=== PATIENT | female | born 1980 | race Two or more races ===

== ENCOUNTER 2024-10-29 21:56 | Emergency (ER) | payer BC, MEDICAID, SELFPAY ==
[2024-10-29 21:57] VITALS: BMI 37.0
[2024-10-29 23:04] VITALS: BP 149/89; PULSE 66; RESP 20; TEMP 36.7; O2SAT 99
--- NOTE | 2024-10-29 23:15 | XR_ITS ---
Examination: CT abdomen with intravenous contrast CT pelvis with intravenous contrast 2-D coronal reconstructions 2-D sagittal reconstructions Date and time of exam:October 30, 2024 0012 hrs. Indications: Onset severe left-sided flank pain left lower abdominal pain beginning 1500 hrs. Yesterday. CTDI: vol (mGy) 13.9 DLP: (mGycm) 813 Technique: Multiple axial sections of the abdomen and pelvis have been obtained. 64 slice high-resolution scanner used. 3 mm axial sections have been obtained, post intravenous injection 60 cc [id number] 2-D sagittal, coronal reconstructions obtained. Low dose protocols were performed. One or more of the following dose reduction techniques were used; automated exposure control, adjustment of the mA and/or KV according to patient size, use of iterative reconstruction technique. Findings: No focal liver or splenic lesions Contracted gallbladder No pancreatic or adrenal mass Mild renal parenchymal scar formation No renal or ureteral calculi, no hydronephrosis Aorta normal size Normal appendix No bowel obstruction No diverticulitis Solid pelvic mass consistent with enlarged left ovary irregular contour 5.0 cm Absent uterus Air distended rectum Contracted urinary bladder Transpedicular lumbar fusion L4-L5 Impression: Abnormally enlarged left ovary, recommend transvaginal transabdominal pelvic sonography follow-up
--- NOTE | 2024-10-29 23:17 | PD.EDRME ---
Rapid Medical Screening Exam E Arrival date/time: 10/29/24 21:56 44F with history of hysterectomy, diverticulitis and kidney stones presents to ED with LLQ/flank pain and N/V. Patient denies dysuria. Chief Complaint: Abdominal Pain Vital signs: Vital Signs Temperature 98.1 F 10/29/24 23:04 Pulse Rate 66 10/29/24 23:04 Respiratory Rate 20 10/29/24 23:04 Blood Pressure 149/89 H 10/29/24 23:04 Pulse Oximetry (%) 99 10/29/24 23:04 Oxygen Delivery Method Room Air 10/29/24 23:04
[2024-10-29] MEDS: ONDANSETRON INJ 2 MG/ML INJ 2 ML 4 MG IV (23:26)
[2024-10-29 23:36] LABS: Basophils # (Auto) 0.1 Thou/mm3 (0.0-0.2); Basophils % (Auto) 1 % (0-2.5); Eosinophils # (Auto) 0.2 Thou/mm3 (0.0-0.5); Eosinophils % (Auto) 2 % (0-10); Hematocrit 41.4 % (36.0-46.0); Hemoglobin 14.2 g/dL (12.0-16.0); Immature Granulocytes % (Auto) 0 % (0-0); Immature Granulocytes Auto 0.01 Thou/mm3 (0.00-0.00); Lymphocytes # (Auto) 2.7 Thou/mm3 (1.0-4.8); Lymphocytes % (Auto) 30 % (10-50); Mean Corpuscular HGB Conc 34.3 g/dl (31.0-37.0); Mean Corpuscular Hemoglobin 30.4 pg (25.0-35.0); Mean Corpuscular Volume 89 fL (80-100); Monocytes # (Auto) 0.7 Thou/mm3 (0.0-0.8); Monocytes % (Auto) 8 % (0-12); Neutrophils # (Auto) 5.2 Thou/mm3 (1.8-7.7); Neutrophils % (Auto) 60 % (37-80); Nucleated Red Blood Cell % 0 /100 WBC (0); Platelet Count 311 Thou/mm3 (140-440); RDW Standard Deviation 40.4 fL (36.4-46.3); Red Blood Count 4.67 Miln/mm3 (4.00-5.20); White Blood Count 8.8 Thou/mm3 (3.6-11.0)
[2024-10-29 23:51] LABS: Anion Gap 9 (7-16); BUN/Creatinine Ratio 16 Ratio (12-20); Blood Urea Nitrogen 16 mg/dL (9-23); Carbon Dioxide 26.2 mMol/L (20.0-31.0); Chloride 107 mMol/L (98-107); Estimated Creatinine Clearance 80.8 mL/min (>60); Glucose 98 mg/dL (74-106); Potassium 3.9 mMol/L (3.4-5.1); Sodium 142 mMol/L (136-145); eGFR > 60 See Note
[2024-10-29 23:52] LABS: Alanine Aminotransferase 24 U/L (10-49); Albumin, Serum 4.7 gm/dL (3.5-5.0); Albumin/Globulin Ratio 1.6 (1.2-2.2); Alkaline Phosphatase 85 U/L (46-116); Aspartate Amino Transferase 22 U/L (0-34); Bilirubin,Total 0.4 mg/dL (0.3-1.2); Calcium 10.1 mg/dL (8.3-10.6); Calcium (Corrected) 10.1 mg/dL (8.5-10.1); Globulin 2.9 gm/dL (2.3-3.5); Lipase 41 U/L (12-53); Osmolality,Calculated 284 (275-295); Total Protein 7.6 gm/dL (5.7-8.2)
[2024-10-29 23:59] LABS: Collection Type, Urine Clean Catch
[2024-10-30 00:09] LABS: Bilirubin,Urine Negative (Negative); Blood,Urine Negative (Negative); Clarity,Urine Clear (Clear/Hazy); Color,Urine Lt-Yellow (Lt Yel-Yel); Culture Indicated,Urine Not Indicated; Glucose, Urine Negative (Negative); Ketones,Urine Negative (Negative); Leukocyte Esterase,Urine Negative (Negative); Nitrite,Urine Negative (Negative); Protein,Urine Negative (Neg - Trace); RBC,Urine 2 /hpf (0-3); Squamous Epithelial Cell,Urine 2 /hpf (0-5); Urobilinogen,Urine Negative mg/dL (0.0-1.0); WBC,Urine 1 /hpf (0-5)
[2024-10-30] MEDS: KETOROLAC INJ 30 MG/ML VIAL IVP (00:23)
[2024-10-30 01:31] VITALS: BP 132/77; PULSE 65; RESP 18; TEMP 36.6; O2SAT 98
--- NOTE | 2024-10-30 01:41 | PC.NURSE ---
To ct scan via [facility].
--- NOTE | 2024-10-30 01:45 | PD.EDABDPN ---
ED Abdominal Pain RME/HPI General Chief Complaint: Abdominal Pain Stated complaint: LLQ/ LT FLANK PAIN Arrival date/time: 10/29/24 21:56 RME / HPI RME / HPI narrative: 10/29/24 21:56 44F with history of hysterectomy, diverticulitis and kidney stones presents to ED with LLQ/flank pain and N/V. Patient denies dysuria. -------- Dr. Alejandro?s Main ED Evaluation: 44yo female presents to the ED for a chief complaint of LLQ pain x 1999. Patient states she started having severe LLQ pain tonight, reporting it radiates to her back and left thigh. Patient reports associated chills. She denies any fever, N/V, diarrhea, constipation or any other associated symptoms. She endorses having a history of kidney stones and diverticulitis. Related Data Home Medications ?Medication ?Instructions ?Recorded ?Confirmed ergocalciferol (vitamin D2) 1,250 mcg PO QWEEK 02/06/24 mcg (50,000 unit) capsule eszopiclone 3 mg tablet (Lunesta) 3 mg PO HS 02/06/24 02/06/24 pramipexole 0.125 mg tablet 0.125 mg PO HS 02/06/24 02/06/24 semaglutide (weight loss) 2.4 2.4 mg subcut QWEEK 02/06/24 02/06/24 mg/0.75 mL subcutaneous pen injector (Wegovy) Allergies Allergy/AdvReac Type Severity Reaction Status Date / Time tramadol AdvReac Mild GI UPSET, Verified 02/08/24 07:54 cloudy thoughts,couldnt think straight PAPER TAPE AdvReac Unknown Uncoded 02/08/24 07:54 Review of Systems Review of Systems Systems Reviewed: All systems reviewed, normal except as documented Past Medical History Past Medical History NEUROLOGIC: Positive Neurological Disorders and Migraine; Negative Seizures CARDIAC: Negative Cardiac Disorders, Congestive Heart Failure, Edema, Cellulitis or Varicose Veins RESPIRATORY: Positive Asthma; Negative Chronic Obstructive Pulmonary Disease (COPD), Tuberculosis, Pulmonary Embolism or Sleep Apnea GASTROINTESTINAL: Positive Gastrointestinal Disorders, Diverticulitis, Gastroesophageal Reflux Disease and Obesity; Negative Hepatitis GENITOURINARY: Positive Genitourinary Disorders and Kidney Stones; Negative Renal Disease REPRODUCTIVE: Positive Previous Pregnancies (x4) MUSCULOSKELETAL: Positive Musculoskeletal Disorders and Degenerative Disk Disease ENDOCRINE: Positive Diabetes Mellitus Type 2; Negative Endocrine Disorders or Diabetes Mellitus Type 1 HEMATOLOGIC: Negative Blood Disorders or Sickle Cell Disease OTHER HISTORY: Positive Chicken Pox; Negative Hospitalization, Autoimmune Disease, Shingles, Falls, Blood Transfusions, Blood Transfusion Reaction, Anesthesia Reactions, Chemotherapy, Radiation Therapy, MRSA, Measles, Mumps or Cancer Family History FAMILY HISTORY: Positive Family Cardiac Disorders, Family Cancer and Family Surgery; Negative Family Psychiatric Problems, Family Respiratory Disorders, Family Gastrointestinal Problems or Family Anesthesia Reaction Surgical History SURGICAL: Positive Tonsillectomy, Abdominal Surgery and Tubal Ligation; Negative Cardiac Surgery or Pacemaker Social History SMOKING STATUS: Never smoker ED Exam Narrative Physical exam: GENERAL APPEARANCE: alert and oriented x 4, well-developed, well-nourished, no acute distress VITALS: All vitals were reviewed and the pulse ox is 98% on room air, which is normal according to my interpretation. HEENT: Normocephalic, atraumatic; pupils equal, round, reactive to light; EOMI; mucous membranes pink, moist; oropharynx clear NECK: Supple LUNGS: CTABL; no wheezes, no rales, no rhonchi HEART: Regular rate, regular rhythm; normal S1, S2; no murmurs ABDOMEN: non distended; normal BS; soft, moderate LLQ tenderness, voluntary guarding, no rebound; no masses, no organomegaly, no hernia BACK: no CVA tenderness EXTREMITIES: atraumatic; no edema NEUROLOGIC: awake; alert and oriented x4; cranial nerves II-XII grossly intact; no focal sensory or motor deficits PSYCHIATRIC: appropriate mood and affect SKIN: warm, dry, normal color; no rashes Course Quality Measures none Orders Category Date Time Status CT Screening NOW Care 10/29/24 23:16 Active Investor Relations Coordinator Q4H START 00 Care 10/30/24 01:56 Active Continuous Pulse Oximetry NOW Care 10/30/24 01:56 Completed IV [Insert IV] NOW Care 10/30/24 01:56 Active Insert IV NOW Care 10/29/24 23:[address] abdomen pelvis w con Stat Exams 10/29/24 23:15 Taken US pelvic complete Stat Exams 10/30/24 03:12 Taken CBC Stat Lab 10/29/24 23:25 Completed CMP [Comprehensive Metabolic Panel] Stat Lab 10/29/24 23:25 Completed Lipase Stat Lab 10/29/24 23:25 Completed Urinalysis, C/S if Indicated Stat Lab 10/29/24 23:55 Completed HYDROmorphone INJ [Dilaudid Inj] Med 10/30/24 01:57 Discontinued 1 mg IVP X1 ONE Ketorolac Inj [Toradol Inj] Med 10/30/24 00:02 Discontinued 30 mg IVP X1 ONE Ondansetron Inj [Zofran Inj] Med 10/29/24 23:16 Discontinued 4 mg IV X1 ONE Sodium Chloride 0.9% 1000 ml [Ns] 1,000 ml Med 10/30/24 01:57 Discontinued IV 999 mls/hr Vital Signs Vital signs: Vital Signs Temperature 98.1 F 10/29/24 23:04 Pulse Rate 66 10/29/24 23:04 Respiratory Rate 20 10/29/24 23:04 Blood Pressure 149/89 H 10/29/24 23:04 Pulse Oximetry (%) 99 10/29/24 23:04 Oxygen Delivery Method Room Air 10/29/24 23:04 Abdominal Pain MDM MDM Narrative MDM Narrative:: Scribe Attestation: 10/30/24 Bianca Kirkland am scribing for and in the presence of Dr. Alejandro. 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 ------ [facility] Preliminary Report Draft Patient: YOHANA VARGAS [facility]. Record#: [id number] Birthdate: 1980 Age/Sex: 44 / F Location: [facility] Attending Dr: Ordering Physician: Date of Service: Procedure(s): Accession Number(s): cc: ~ CT scan of the abdomen and pelvis with intravenous contrast (axial sections with sagittal and coronal reformats) October 30, 2024 at 0140 hours Clinical History: LLQ/flank pain. Comparison: None. Findings: The lung bases are clear. The liver, gallbladder, pancreas, spleen, kidneys and adrenals are unremarkable. No evidence of bowel obstruction. The appendix is within normal limits. There is no mesenteric or retroperitoneal adenopathy. The urinary bladder is nondistended, limited evaluation. There is no free fluid or free air. No acute fractures. S/p posterior laminectomy of L4 and L5. Chronic disc disease at L4-L5. Posterior fusion hardware between L4, L5, and S1. S/p hysterectomy. Enlarged heterogenous left ovary measuring 5.0 x 4.2 cm. Impression: Enlarged heterogenous left ovary. Correlation with pelvic ultrasound is recommended. No evidence of kidney or ureteral stones. Report Electronically Signed By: Warren Bernard 10/30/2024 2:30:36 AM [EST] [facility] Preliminary Report Draft Patient: YOHANA VARGAS Record#: [id number] Birthdate: 1980 Age/Sex: 44 / F Location: [facility] Attending Dr: Ordering Physician: Date of Service: Procedure(s): Accession Number(s): cc: ~ Pelvic ultrasound (transabdominal ) with doppler and wave doppler spectral analysis. October 30, 2024 at 0419 hours Clinical history: Left lower quadrant/left pelvic pain. Technique: Real-time, grayscale, transabdominal and transvaginal pelvic ultrasound was performed using Duplex scanning including arterial inflow, venous outflow, color and spectral Doppler. Comparison: Compared with the prior study dated October 30, 2024. Findings: Status post hysterectomy. The right ovary measures 1.8 x 2.2 x 1.8 cm and is unremarkable. The left ovary measures 3.7 x 3.8 x 2.8 cm mildly complex cystic lesion in the left ovary measures 1.7 x 0.8 x 1.5 cm. Both ovaries demonstrate color flow and spectral waveforms on Doppler evaluation. There is no adnexal mass. There is no free fluid on the submitted images. Impression: No evidence of ovarian torsion. Left ovarian mildly complex cystic lesion, possibly ruptured cyst. Consider correlation with MRI for further evaluation. Report Electronically Signed By: Warren Bernard 10/30/2024 5:45:55 AM [EST] Medications / Prescriptions Medications or Prescriptions considered but not ordered:: none Medication administrations:: Medication Administration History Discontinued Medications Hydromorphone HCl (Hydromorphone Inj 2 Mg/Ml Vial) 1 mg IVP X1 ONE Stop: 10/30/24 01:58 Last Admin: 10/30/24 02:00 Dose: 1 mg Documented By: LISANDRO Sodium Chloride (Ns) 1,000 mls @ 999 mls/hr IV .Q1H1M ONE Stop: 10/30/24 02:57 Last Infusion: 10/30/24 03:28 Dose: Infused Documented By: Admin: 10/30/24 02:00 Dose: 999 mls/hr Documented By: LISANDRO Ketorolac Tromethamine (Ketorolac Inj 30 Mg/Ml Vial) 30 mg IVP X1 ONE Stop: 10/30/24 00:03 Last Admin: 10/30/24 00:23 Dose: 30 mg Documented By: ADAM Ondansetron HCl (Ondansetron Inj 2 Mg/Ml Inj 2 Ml) 4 mg IV X1 ONE; Protocol Stop: 10/29/24 23:17 Last Admin: 10/29/24 23:26 Dose: 4 mg Documented By: ADAM see above Consultations Consultation(s) initiated? (list below): No Diagnosis Differential diagnosis abdominal pain: diverticulitis and other (renal colic, ovarian cyst, tubo ovarian abscess) Most likely diagnosis given after review of the tests above:: see below Admission Indicated Admission indicated?: not indicated Admission Request Was there a request for admission?: No Disposition Plan Disposition Plan: Discharge Discharge Attestation Discharge Attestation: The patient and all family members were given an opportunity to ask questions and understood the discharge instructions. Discharge instructions specifically effects, indications for sooner follow up or return to the emergency department, and the expected course of current diagnosis. Patient condition: Stable Discharge Plan Prescriptions/Referrals Prescriptions/Med Rec: No Action pramipexole 0.125 mg tablet 0.125 mg PO HS Patient Comments: TAKE 1 TABLET BY MOUTH 2-3 HOURS BEFORE BEDTIME 90 ergocalciferol (vitamin D2) 1,250 mcg (50,000 unit) capsule PO QWEEK Patient Comments: TAKE 1 CAPSULE BY MOUTH ONE TIME A WEEK eszopiclone [Lunesta] 3 mg Tablet 3 mg PO HS Wegovy 2.4 mg/0.75 mL pen injector 2.4 mg SUBCUT QWEEK Patient Comments: INJECT 2.4MG SUBCUTANEOUSLY WEEKLY 28 Referrals: No Primary/Family,Physician [Primary Care Provider] - In 1 week Problem List Clinical Impression: Left lower quadrant abdominal pain Patient/Caregiver Discharge Instructions Print Language: Guamanian
[2024-10-30] MEDS: HYDROmorphone INJ 2 MG/ML VIAL 1 MG IVP (02:00)
[2024-10-30] MEDS: SODIUM CHLORIDE 0.9% 1000 ML 1,000 ML 999 ML IV (02:00)
--- NOTE | 2024-10-30 02:56 | PRELIM_ITS ---
CT scan of the abdomen and pelvis with intravenous contrast (axial sections with sagittal and coronal reformats) October 30, 2024 at 0140 hours Clinical History: LLQ/flank pain. Comparison: None. Findings: The lung bases are clear. The liver, gallbladder, pancreas, spleen, kidneys and adrenals are unremarkable. No evidence of bowel obstruction. The appendix is within normal limits. There is no mesenteric or retroperitoneal adenopathy. The urinary bladder is nondistended, limited evaluation. There is no free fluid or free air. No acute fractures. S/p posterior laminectomy of L4 and L5. Chronic disc disease at L4-L5. Posterior fusion hardware between L4, L5, and S1. S/p hysterectomy. Enlarged heterogenous left ovary measuring 5.0 x 4.2 cm. Impression: Enlarged heterogenous left ovary. Correlation with pelvic ultrasound is recommended. No evidence of kidney or ureteral stones. Report Electronically Signed By: Warren Bernard 10/30/2024 2:30:36 AM [EST]
--- NOTE | 2024-10-30 03:12 | XR_ITS ---
Examination: Pelvic ultrasound, transabdominal, complete Technique: Transabdominal ultrasound of the pelvis performed using grayscale imaging Date and time of exam: October 30, 2024 0419 hrs. Indications: Left-sided pelvic pain beginning today, hysterectomy February 02, 2024 Findings: Absent uterus Right ovary 2.2 cm arterial flow Left ovary 3.8 cm arterial flow, mild fluid adjacent to the left ovary (17 x 8 x 15 mm Impression: Mild fluid adjacent to the left ovary which may be secondary to ruptured cyst Left ovarian cyst 17 x 8 x 15 mm
[2024-10-30 04:18] VITALS: BP 120/77; PULSE 62; RESP 18; TEMP 36.6; O2SAT 99
--- NOTE | 2024-10-30 04:19 | PC.NURSE ---
US at bedside.
[2024-10-30 05:23] VITALS: BP 115/71; PULSE 62; RESP 18; TEMP 36.6; O2SAT 95
--- NOTE | 2024-10-30 05:46 | PRELIM_ITS ---
Pelvic ultrasound (transabdominal ) with doppler and wave doppler spectral analysis. October 30, 2024 at 0419 hours Clinical history: Left lower quadrant/left pelvic pain. Technique: Real-time, grayscale, transabdominal and transvaginal pelvic ultrasound was performed using Duplex scanning including arterial inflow, venous outflow, color and spectral Doppler. Comparison: Compared with the prior study dated October 30, 2024. Findings: Status post hysterectomy. The right ovary measures 1.8 x 2.2 x 1.8 cm and is unremarkable. The left ovary measures 3.7 x 3.8 x 2.8 cm mildly complex cystic lesion in the left ovary measures 1.7 x 0.8 x 1.5 cm. Both ovaries demonstrate color flow and spectral waveforms on Doppler evaluation. There is no adnexal mass. There is no free fluid on the submitted images. Impression: No evidence of ovarian torsion. Left ovarian mildly complex cystic lesion, possibly ruptured cyst. Consider correlation with MRI for further evaluation. Report Electronically Signed By: Warren Bernard 10/30/2024 5:45:55 AM [EST]
--- NOTE | 2024-10-30 06:02 | PC.NURSE ---
Dr. Alejandro in to talk to pt with regards to results and plan of care.
[2024-10-30 06:04] VITALS: BP 120/77; PULSE 64; RESP 18; TEMP 36.6; O2SAT 98
== END 2024-10-30 06:15 | disposition home or self-care (01) ==
PROVIDERS: Physician Assistant; Emergency Provider Emergency Medicine
DX: N83.202 Unspecified ovarian cyst, left side (principal); R10.32 Left lower quadrant pain
CPT/HCPCS: 36415; 74177; 76856; 80053; 81001; 83690; 85025; 96361; 96374; 96375; 99285; A4649; J1885; J2405; J3490; J7030; Q9967

== ENCOUNTER 2024-12-09 09:28 | Outpatient (AMB) | payer BC, MEDICAID, SELFPAY ==
--- NOTE | 2024-12-09 09:45 | GYNCLNT_ITS ---
Vital Signs 12/09/24 09:46 Height 1.63 m Height Method Stated Weight 98.997 kg Weight Measurement Method Standing Scale BMI 37.4 BP 124/83 Blood Pressure Source Automatic Cuff Blood Pressure Location Left Upper Arm Position Sitting Respiration 18 Pulse 68 Pulse Source Monitor Temp 97.2 F Temp Source Oral Pulse Oximetry (%) 95 Oxygen Delivery Method Room Air Allergies/Home Meds Allergies & Medications Allergies tramadol Adverse Reaction (Mild, Verified 02/08/24 07:54) GI UPSET, cloudy thoughts,couldnt think straight PAPER TAPE Adverse Reaction (Unknown, Uncoded 02/08/24 07:54) Intake Visit Data Collection New Patient or Established: Established Patient (seen at [facility] within 3 years) Reason for Visit:: Post surgery follow up Seen by Clinical Staff ONLY (RN/MA): No Delivery Director Required: No Do You Feel Safe at Home: Yes Authorities Contacted: N/A PCP or OBGYN visit in last 3 months: No Hx Now: No Are you currently on any form of Control: No Pain Present Currently: No Pain Scale Used: Jimenez-Morales/Numerical Pain scale:: 0 Smoking Status Smoking Status: Never smoker [employer] history [employer] History Monthly: No Menopausal: No Currently sexually active: Yes Questionnaires Covid-19 Vaccine Questionnaire Has patient been vacinated for Covid-19 Have you been vacinated for Covid-19: Yes PHQ-9 PHQ-2 Over the last 2 weeks, how often have you been bothered by any of the following problems? 1. Little interest or pleasure in doing things: not at all 2. Feeling down, depressed, or hopeless: not at all Total score: 0 PHQ-9 3. Trouble falling or staying asleep, or sleeping too much: Not at all 4. Feeling tired or having little energy: Not at all 5. Poor appetite or overeating: Not at all 6. Feeling bad about yourself - or that you are a failure or have let yourself or your family down: Not at all 7. Trouble concentrating on things, such as reading the newspaper or watching television: Not at all 8. Moving or speaking so slowly that other people could have noticed? - Or the opposite - being so fidgety or restless that you have been moving around a lot more than usual: not at all 9. Thoughts that you would be better off or of hurting yourself in some way: Not at all Total score: 0 If you checked off any problems, how difficult have these problems made it for you to do your work, take care of things at home, or get along with other people?: not difficult at all Source: Developed by Drs. Gino Mas, Lynne Shannon, Roman Graham and colleagues, with an educational janey from [employer]. Depression screen completed yes Social History Living Situation History Lives With: Family Housing: House Tobacco History Smoking Status: Never smoker Alcohol History Alcohol Intake: Current Alcohol Intake Frequency: holidays/special occasions only Domestic Abuse History Do You Feel Safe at Home: Yes Past Medical History Past Medical History Have you ever been diagnosed with any of the following: Neurological Problems Seizures: No Migraine: Yes Cardiology Problems Congestive Heart Failure: No Edema: No Cellulitis: No Varicose Veins: No Respiratory Problems Chronic Obstructive Pulmonary Disease (COPD): No Asthma: Yes Tuberculosis: No Pulmonary Embolism: No Sleep Apnea: No Stomache/Intestinal Problems Hepatitis: No Diverticulitis: Yes Gastroesophageal Reflux Disease: Yes Obesity: Yes Genital/Urinary Problems Renal Disease: No Kidney Stones: Yes Reproductive Problems Previous Pregnancies: Yes (x4) Musculoskeletal Problems Degenerative Disk Disease: Yes Endocrine Problems Diabetes Mellitus Type 1: No Diabetes Mellitus Type 2: Yes Blood Problems Sickle Cell Disease: No Other Problems Hospitalization: No Shingles: No Falls: No Blood Transfusions: No Blood Transfusion Reaction: No Anesthesia Reactions: No Chemotherapy: No Radiation Therapy: No MRSA: No Chicken Pox: Yes Measles: No Mumps: No Cancer: No Surgical History Pacemaker: No History of Present Illness HPI Narrative Patient presents for emergency room follow-up due to left lower quadrant pain and urinary incontinence. She reports that the pain has improved since the ER visit, but she still experiences occasional mild pain in the left side. Her primary concern is urinary incontinence, which she describes as difficulty holding urine. She states, I feel like if I don't go at the precise moment, it's like I gotta go, I gotta go. The patient denies leakage with coughing or sneezing but reports instances where she cannot hold her urine and it just flows. She has attempted to manage the symptoms by performing Kegel exercises. The incontinence is impacting her daily life, causing concern and discomfort. She is a 44-year-old female with a history of laparoscopic assisted vaginal hysterectomy in January 2024. On December 30, 2024, the patient presented to the emergency room with left lower quadrant pain. A CT scan and subsequent transvaginal ultrasound revealed an enlarged left ovary measuring 3.8 centimeters with mild adjacent fluid and a cyst measuring 17 x 8 x 15 millimeters, consistent with a ruptured cyst. The patient reports an uneventful recovery following her hysterectomy in January 2024. 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 Diagnostic Test Results and Labs: - CT scan (12/2024): Showed enlarged left ovary. - Transvaginal ultrasound (12/2024): Left ovary measuring 3.8 cm with mild adjacent fluid. Cyst measuring 17 x 8 x 15 mm, consistent with ruptured cyst. Rest of ultrasound within normal limits. Review of Systems Review of Systems Systems Reviewed: All systems reviewed, normal except as documented Exam General Limitations: no limitations General Appearance: alert, in no apparent distress, comfortable, cooperative, healthy appearing, well developed and well groomed Head Head exam: atraumatic, normocephalic and normal inspection Chest Chest inspection: Present normal inspection and symmetric chest wall rise Abdominal Abdominal exam: Present soft and normal bowel sounds Psych Psychiatric exam: Present normal affect and normal mood Skin Skin exam: Present warm, dry, intact and normal color Assessment & Plan Diagnosis / Problem List (1) Unspecified ovarian cyst, left side: Status: Acute (2) Urge incontinence: Status: Acute Plan Ruptured Ovarian Cyst Plan: - Repeat transvaginal ultrasound to reassess ovarian cyst. Urinary Incontinence Plan: - Initiate medication for urinary incontinence. - Refer to [facility] for pelvic floor physical therapy. - Refer to Dr. Levi (Urology) for consultation and ultrasound. - Follow-up in 2 months to assess response to medication and physical therapy. Office Procedures OB Clinic LOC & Office Proc's Nursing/Assessment Patient Status: Established Patient OB Clinic Nursing Assessment: BP Monitoring, Medication Reconciliation, Update PMH in EMR and Vital Signs OB Clinic Coordination of Care: Consent,records obtained, informed consent, Education Simp Pt/Fam, Lab and Imaging orders and Staff clarify orders Established Patient Charge Established Patient Point Assignment: 90 Established Patient Point Charge: EP Level 3 (80-115)
[2024-12-09 09:46] VITALS: BP 124/83; PULSE 68; RESP 18; TEMP 36.2; O2SAT 95; BMI 37.4
== END 2024-12-09 10:02 | disposition home or self-care (01) ==
LOC: HODSOBC 09:28
PROVIDERS: PCP Obstetrics & Gynecology; Referring Provider Obstetrics & Gynecology; Supervising Provider Obstetrics & Gynecology; Visit Provider Obstetrics & Gynecology
DX: N83.202 Unspecified ovarian cyst, left side (principal); N39.41 Urge incontinence; Z90.710 Acquired absence of both cervix and uterus
CPT/HCPCS: 99213; G0463

== ENCOUNTER → 2025-07-23 | Outpatient (CLI) | payer BC, SELFPAY ==
--- NOTE | 2025-07-23 09:45 | XR_ITS ---
Examination: Screening digital mammography, bilateral Computer aided detection 3-D breast Tomosynthesis, bilateral Date and time of exam: July 23, 2025, 0934 hours, compared to mammograms dating to January 10, 2020 Indication: Screening Technique: Nonmagnified MLO, CC views of the breasts to been obtained, reconstructed from 3-D Tomosynthesis images. R2 computer aided detection program utilized for evaluation of suspicious masses and/or abnormal calcifications. 3-D Tomosynthesis images obtained. Findings: Scattered areas of fibroglandular density. Benign calcifications. No interval suspicious masses Impression: BI-RADS category II: Benign Findings. Recommend 1 year follow-up mammogram.
== END | disposition home or self-care (01) ==
LOC: CDIM 09:27
PROVIDERS: Referring Provider Specialist; Visit Provider Specialist
DX: Z12.31 Encounter for screening mammogram for malignant neoplasm of breast (principal); R92.323 Mammographic fibroglandular density, bilateral breasts; R92.1 Mammographic calcification found on diagnostic imaging of breast
CPT/HCPCS: 77063; 77067